=== PATIENT | male | born 1980 | race Asian ===

== ENCOUNTER 2019-05-05 11:24 | Emergency (ER) | payer OTHER ==
[2019-05-05] MEDS ORDERED: DIPHTH,PERTUSS(ACELL),TET 0.5 ML DISP.SYRIN IM ONE ×2 (11:40→12:04)
--- NOTE | 2019-05-05 11:40 | PDOC ---
Rapid Medical Evaluation Time Seen by Provider: 05/05/19 11:38 Medical Evaluation: 05/05/19 11:38 I have performed a brief in-person evaluation of this patient. The patient presents with a chief complaint of: sulfuric acid to right thumb Pertinent physical exam findings: zurita to thumbs b/l with right>left I have ordered the following: Td, xrays, irrigation The patient will proceed to the ED for further evaluation. Discharge Disposition - Diagnosis Chemical burn - Referrals - Patient Instructions - Post Discharge Activity
[2019-05-05 11:45] VITALS: BP 115/80; PULSE 93; TEMP 99; BMI 22.6
--- NOTE | 2019-05-05 11:53 | PDOC ---
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 Patient report he was trying to clean and draining the house when sulfuric acid spilled onto bilateral hands. Patient reported burn to dorsal aspect of right thumb with small blisters to left thumb and index finger from the chemical spill. Patient does not recall last tetanus vaccine. Denies restricted and finger movement or decrease finger movement. Denies any other symptoms Occurred: reports: yesterday Past History - Past Medical History Allergies/Adverse Reactions: Allergies Allergy/AdvReac Type Severity Reaction Status Date / Time No Allergy Information Allergy Verified 05/05/19 11:46 Available Home Medications: Ambulatory Orders Ibuprofen 800 mg PO Q8H PRN #20 tablet 05/05/19 - Suicide/Smoking/Psychosocial Hx Smoking History: Current every day smoker Number of Cigarettes Smoked Daily: 10 Information on smoking cessation initiated: No Review of Systems - Review of Systems Able to Perform ROS?: Yes Is the patient limited Nam[place]ian proficient: No Constitutional: No: Chills, Fever, Malaise HEENTM: No: Symptoms Reported Respiratory: No: Symptoms reported Cardiac (ROS): No: Symptoms Reported ABD/GI: No: Symptoms Reported Musculoskeletal: Yes: Symptoms Reported, See HPI, Muscle Pain (right thumb and radial side of wrist). No: Muscle Weakness Integumentary: Yes: Symptoms Reported, See HPI, Other (burn to b/l thumbs and left index finger with more burn to right thumb) Neurological: No: Symptoms reported, Numbness, Paresthesia, Tingling, Weakness All Other Systems: Reviewed and Negative *Physical Exam - Vital Signs Last Vital Signs Temp Pulse Resp BP Pulse Ox 99.0 F 93 H 14 115/80 98 05/05/19 11:35 05/05/19 11:35 05/05/19 11:35 05/05/19 11:35 05/05/19 11:35 - Physical Exam Comments: 05/05/19 12:39 GENERAL: Well developed, well nourished. Awake and alert. No acute distress. PULMONARY: No evidence of respiratory distress. MUSCULOSKELETAL Normal range of motion at all joints. Moderate tenderness over burning to dorsal aspect of right thumb. 5 out of 5 muscle strength to bilateral thumb and left index finger. SKIN: Warm and dry . Normal capillary refill. 6 cm superficial Third degree burn with complete skin evulsion to dorsal aspect of right thumb with no bleeding. Second- degree burn with blister to dorsal aspect of left thumb and left index finger. NEUROLOGICAL: Alert, awake, appropriate. Gait is normal without ataxia. PSYCHIATRIC: Cooperative. Good eye contact. Appropriate mood General Appearance: Yes: Nourished, Appropriately Dressed. No: Apparent Distress Medical Decision Making - Medical Decision Making 05/05/19 12:24 Patient with no significant past medical history present with complaint of burn to bilateral thumb with more burn to right thumb with sulfuric acid yesterday while trying to clean it sink drain using some for acid. Patient report he was trying to clean and draining the house when sulfuric acid spilled onto bilateral hands. Patient reported burn to dorsal aspect of right thumb with small blisters to left thumb and index finger from the chemical spill. Patient does not recall last tetanus vaccine. Denies restricted and finger movement or decrease finger movement. Denies any other symptoms Exam significant for third degree burn to dorsal aspect of right thumb. Small 1 cm second-degree burn with blisters to dorsal aspect of left thumb and left index finger. No pain wound to left thumb or index finger. Free range of motion of bilateral hands. 5 out of 5 muscle strength to bilateral thumb and index finger. Wound cleaned with Betadine and irrigated with normal saline. Wound allow to run under tap water for 15 minutes Silvadene cream applied to wound and blisters. Right thumb covered with petrolatum jelly gauze with stretch gauze. Toradol 60 mg IM given for pain and tetanus vaccine given by nurse. X-ray of bilateral hands ordered to evaluate for acute pathology. Patient be discharged home on Silvadene cream with hand specialist follow-up. Plan discussed with Dr. Multani which were agrees with plan 05/05/19 12:41 X-ray of bilateral hand shows no acute pathology area patient stable for discharge with educational home wound care was Silvadene and hand specialist follow-up. Plan discussed with patient via Mandarin lubrication technician and patient voice understanding no plan and will follow-up *DC/Admit/Observation/Transfer Diagnosis at time of Disposition: Chemical burn Third degree burn of right thumb Qualifiers: Encounter type: initial encounter Qualified Code(s): T23.311A - Burn of third degree of right thumb (nail), initial encounter Second degree burn of multiple fingers of left hand including thumb Qualifiers: Encounter type: initial encounter Qualified Code(s): T23.242A - Burn of second degree of multiple left fingers (nail), including thumb, initial encounter - Discharge Dispostion Disposition: HOME Condition at time of disposition: Stable Decision to Admit order: No - Prescriptions Prescriptions: Ibuprofen 800 mg PO Q8H PRN #20 tablet PRN Reason: pain - Referrals Referrals: Bryan Gay MD [Staff Physician] - - Patient Instructions Printed Discharge Instructions: How to Take Care of a Burn, DI for Velasco, DI for Chemical Eye Burn Additional Instructions: use given silvadene cream on wound twice a day. Take prescribed motrin as needed for pain. Follow-up with referred hand specialist in 2-3 days for reassessment M?iti?n li?ng c zi sh?ngk?u shng sh?yng silvadene curtis?ng. G?nj tngtng x? yo fyng gu?dng de yndng s. Zi 2-3 ti?n ni g?nz?ng tu?jin de sh?u b preciado?nji? jnxng chngx?n pngg? - Post Discharge Activity
[2019-05-05] MEDS ORDERED: SILVER SULFADIAZINE 1% TOP CREAM 50 GM JAR TP ONE ×2 (11:54→12:03)
[2019-05-05] MEDS ORDERED: KETOROLAC TROMETHAMINE 60 MG/2 ML VIAL ONE (12:04)
[2019-05-05] MEDS ORDERED: KETOROLAC TROMETHAMINE 60 MG/2 ML VIAL IM ONE (12:04)
--- NOTE | 2019-05-05 12:46 | PDOC ---
*Physical Exam - Vital Signs Last Vital Signs Temp Pulse Resp BP Pulse Ox 99.0 F 93 H 14 115/80 98 05/05/19 11:35 05/05/19 11:35 05/05/19 11:35 05/05/19 11:35 05/05/19 11:35 - Physical Exam Comments: 05/05/19 12:45 The patient was examined by [SAVANA Morris] under my direct supervision. I personally evaluated the patient. I concur with the above findings and the plan of care. ED Treatment Course - Medications Given in the ED: ED Medications Discontinued Medications Generic Name Dose Route Start Last Admin Trade Name Freq PRN Reason Stop Dose Admin Diphtheria/Tetanus/Acell Pertussis 0.5 ml 05/05/19 11:40 05/05/19 12:22 Boostrix - IM 05/05/19 11:41 0.5 ml .ONCE ONE Administration Ketorolac Tromethamine 60 mg 05/05/19 12:04 05/05/19 12:23 Toradol Injection - IM 05/05/19 12:05 60 mg ONCE ONE Administration Silver Sulfadiazine 1 applic 05/05/19 11:54 05/05/19 12:22 Silvadene - TP 05/05/19 11:55 1 applic ONCE ONE Administration *DC/Admit/Observation/Transfer Diagnosis at time of Disposition: Chemical burn Third degree burn of right thumb Qualifiers: Encounter type: initial encounter Qualified Code(s): T23.311A - Burn of third degree of right thumb (nail), initial encounter Second degree burn of multiple fingers of left hand including thumb Qualifiers: Encounter type: initial encounter Qualified Code(s): T23.242A - Burn of second degree of multiple left fingers (nail), including thumb, initial encounter - Discharge Dispostion Disposition: HOME Condition at time of disposition: Stable - Prescriptions Prescriptions: Ibuprofen 800 mg PO Q8H PRN #20 tablet PRN Reason: pain - Referrals Referrals: Bryan Gay MD [Staff Physician] - - Patient Instructions Printed Discharge Instructions: How to Take Care of a Burn, DI for Velasco, DI for Chemical Eye Burn Additional Instructions: use given silvadene cream on wound twice a day. Take prescribed motrin as needed for pain. Follow-up with referred hand specialist in 2-3 days for reassessment M?iti?n li?ng c zi sh?ngk?u shng sh?yng silvadene curtis?ng. G?nj tngtng x? yo fyng gu?dng de katlin s. Fermin 2-3 ti?n ni g?nz?ng tu?karely de sh?u b preciado?nji? jnxng chngx?n pngg? - Post Discharge Activity
== END 2019-05-05 12:51 | disposition home or self-care (01) ==
LOC: JER 11:24
PROC: 3E0234Z Introduction of Serum, Toxoid and Vaccine into Muscle, Percutaneous Approach (ICD-10-PCS; principal; 2019-05-05)
PROC: 3E0233Z Introduction of Anti-inflammatory into Muscle, Percutaneous Approach (ICD-10-PCS; 2019-05-05)
PROC: 3E0233Z Introduction of Anti-inflammatory into Muscle, Percutaneous Approach (ICD-10-PCS; 2019-05-05)
PROC: 2W2GX4Z Dressing of Right Thumb using Bandage (ICD-10-PCS; 2019-05-05)
PROC: 2W2HX4Z Dressing of Left Thumb using Bandage (ICD-10-PCS; 2019-05-05)
PROC: 2W2KX4Z Dressing of Left Finger using Bandage (ICD-10-PCS; 2019-05-05)
DX: T23.7 Corrosion of third degree of wrist and hand (principal); T23.6 Corrosion of second degree of wrist and hand; T54.2X1A Toxic effect of corrosive acids and acid-like substances, accidental (unintentional), initial encounter; Y92.018 Other place in single-family (private) house as the place of occurrence of the external cause
CPT/HCPCS: 73130-TC-LT-FY; 73130-TC-RT-FY; 90715; 99281-25

== ENCOUNTER 2019-05-08 11:53 | Emergency (ER) | payer OTHER | END 2019-05-08 13:34 | disposition home or self-care (01) | LOC: JERFT 11:53 ==

== ENCOUNTER 2025-03-22 00:31 | Emergency (ER) | payer OTHER ==
[2025-03-22 00:51] VITALS: BP 129/88; PULSE 79; RESP 18; TEMP 97.9; BMI 22.6
[2025-03-22] MEDS ORDERED: KETOROLAC TROMETHAMINE 15 MG/ML VIAL ONE (01:02)
[2025-03-22] MEDS: KETOROLAC TROMETHAMINE 15 MG/ML VIAL IM ONE (01:09)
== END 2025-03-22 01:51 | disposition home or self-care (01) ==
LOC: JER 00:31
PROC: 3E0233Z Introduction of Anti-inflammatory into Muscle, Percutaneous Approach (ICD-10-PCS; principal; 2025-03-22)
DX: M25.521 Pain in right elbow (principal)
CPT/HCPCS: 73070-TC-RT-FY; 96372; 99284-25